=== PATIENT | female | born 1950 | race Caucasian/White ===

== ENCOUNTER 2017-05-11 17:52 | Emergency (ER) | payer OTHER, MEDICARE ==
[~2017-05-11] VITALS: Ht 157.5 cm; Wt 61.7 kg
[~2017-05-11 17:52] MED LIST: CLONAZEPAM1 MG PO; HYDROXYZINE HCL25 MG PO; LORAZEPAM1 MG PO; SYNTHROID150 MCG PO; ZOLPIDEM TARTRA10 MG PO
[2017-05-11 18:45] LABS: HEMATOCRIT 39.2 % (36.0-46.0); MCH 32.1 PG (29.0-34.0); MCHC 35.2 G/DL (30.0-36.0); MCV 91.2 FL (83-99); MEAN PLAT.VOLUME 10.4 uM^3 (9.5-12.4); PLATELET COUNT 304 K/uL (156-360); RBC DIS.WIDTH-CV 12.2 % (11.8-14.6); RBC DIS.WIDTH-SD 40.8 % (39-53); WHITE BLOOD COUNT 8.8 K/uL (4.1-10.2)
[2017-05-11 19:05] LABS: CHLORIDE 98 mEq/L (99-109); POTASSIUM 3.5 mEq/L (3.7-5.4); SODIUM 136 mEq/L (136-147)
[2017-05-11 19:07] LABS: GLUCOSE 92 mg/dL (70-99)
[2017-05-11 19:08] LABS: ANION GAP 13 MEQ/L (2-14)
[2017-05-11 19:09] LABS: TOTAL BILIRUBIN 2.2 mg/dL (0.0-1.0)
[2017-05-11 19:11] LABS: ALKALINE PHOSPHATASE 88 IU/L (3-129); GFR ESTIMATE (CALCULATED) > 59 mL/min/
[2017-05-11 19:12] LABS: UREA NITROGEN (BUN) 8 mg/dL (9-23)
[2017-05-11 19:13] LABS: DIRECT BILIRUBIN 0.7 mg/dL (0.0-0.3)
[2017-05-11 19:14] LABS: LIPASE 9 U/L (1.0-51.0); TROP-I INTERPRETATION NEGATIVE; TROPONIN-I < 0.01 ng/mL (0.0-0.30)
[2017-05-11 19:55] LABS: ADD MIUA? NO; BILIRUBIN NEGATIVE; BLOOD NEGATIVE; COLOR STRAW ((YELLOW)); GLUCOSE (STRIP) NEGATIVE; KETONES NEGATIVE; LEUKOCYTES NEGATIVE; NITRITE NEGATIVE; PROTEIN (STRIP) NEGATIVE; SPECIFIC GRAVITY 1.004 (1.000-1.030); UROBILINOGEN 0.2 MG/DL (0.2-1.0)
[2017-05-11] MEDS ORDERED: IMODIUM A-D2 M2 PO (19:57)
[2017-05-11 20:43] VITALS: BP 134/87
== END 2017-05-11 20:44 | disposition home or self-care (01) ==
LOC: EME 17:52
PROVIDERS: Nurse Practitioner Family
DX: R19.7 Diarrhea, unspecified (principal); E86.0 Dehydration; E03.9 Hypothyroidism, unspecified; Z88.0 Allergy status to penicillin; Z88.1 Allergy status to other antibiotic agents
CPT/HCPCS: 80048; 80076; 81003; 83690; 84484; 85027; 87493; 99281; 99284; J7030